=== PATIENT | male | born 1985 ===

== ENCOUNTER → 2023-08-05 09:04 | Outpatient (CLI) | payer OTHER, SELFPAY ==
--- NOTE | ~2023-08-05 | MR_ITS ---
EXAMINATION: MR pelvis wo/w con DATE: 08/05/2023 10:30 INDICATION: Neuroendocrine tumor. Rectal cancer. TECHNIQUE: Magnetic resonance imaging (MRI) of the pelvis was performed without and with 15 mL Multih ance intravenous contrast. Fullfield sequences of the pelvis included axial and coronal T2-weighted S S FSE, coronal 2D FIESTA, axial T1-weighted FSPGR, axial dual-echo T1-weighted FSPGR and axial T1 stacey ghted LAVA. Small field of view sequences included axial, sagittal and coronal T2-weighted FSE cente red on the rectum. Postcontrast sequences included a time course axial T1-weighted LAVA with full-fi eld of view of the pelvis. COMPARISON: None. FINDINGS: Latter and prostate are normal. Visualized portion of the bowels are unremarkable. The site of a repo rted rectal neuroendocrine tumor is unable to be identified. No pathologically enlarged pelvic, ingui nal or lower abdominal lymphadenopathy. Prominent low signal intensity bone island at the right poste rior iliac spine. Bone marrow signal is otherwise unremarkable with no abnormally enhancing bone lesi ons or other pathologic marrow replacing process. No free fluid in the pelvis. IMPRESSION: 1. Unremarkable MRI of the pelvis with no evident metastatic disease. Reviewed, dictated and finalized at location A. [facility]
== END ==
PROVIDERS: Visit Provider Family Medicine
DX: D3A.8 Other benign neuroendocrine tumors (principal)
CPT/HCPCS: 72197; A9577